=== PATIENT | female | born 1965 | race Caucasian/White ===

== ENCOUNTER 2017-10-19 09:17 | Emergency (ER) | payer BC, SELFPAY | END 2017-10-19 10:30 | disposition home or self-care (01) | LOC: MADERS 09:17 | DX: J06.9 Acute upper respiratory infection, unspecified (principal); E11.9 Type 2 diabetes mellitus without complications; Z79.4 Long term (current) use of insulin | CPT/HCPCS: 99283 ==

== ENCOUNTER 2017-12-28 11:40 | Emergency (ER) | payer BC ==
--- NOTE | 2017-12-28 12:35 | RAD ---
PA AND LATERAL CHEST RADIOGRAPH: Date: 12-28-17 HISTORY: Cough. Comparison: None available. FINDINGS: Cardiac silhouette and pulmonary vasculature are within normal limits. Lungs are clear. Degenerative changes are seen in the spine. IMPRESSION: No acute cardiopulmonary process. POS: [facility]
== END 2017-12-28 12:20 | disposition home or self-care (01) ==
LOC: MADERS 11:40
DX: J20.9 Acute bronchitis, unspecified (principal); I10 Essential (primary) hypertension; E78.5 Hyperlipidemia, unspecified; E11.9 Type 2 diabetes mellitus without complications; Z79.4 Long term (current) use of insulin; Z79.899 Other long term (current) drug therapy
CPT/HCPCS: 71046

== ENCOUNTER 2018-06-20 08:31 | Emergency (ER) | payer BC ==
[2018-06-20] MEDS ORDERED: predniSONE 10 MG TAB ONE (09:09)
[2018-06-20] MEDS ORDERED: predniSONE 20 MG TAB ONE (09:09)
[2018-06-20] MEDS ORDERED: Azithromycin 250 MG TAB ONE (09:09)
[2018-06-20] MEDS ORDERED: Insulin Regular 300 UNITS/3 ML VIAL ONE (10:11)
[2018-06-20] MEDS ORDERED: Lorazepam 2 MG/ML VIAL ONE (12:33)
== END 2018-06-20 11:40 | disposition home or self-care (01) ==
LOC: MADERS 08:31
DX: J20.9 Acute bronchitis, unspecified (principal); E11.65 Type 2 diabetes mellitus with hyperglycemia; I10 Essential (primary) hypertension; E78.5 Hyperlipidemia, unspecified; E11.9 Type 2 diabetes mellitus without complications; Z79.4 Long term (current) use of insulin; Z79.899 Other long term (current) drug therapy
CPT/HCPCS: 36416; J1815; J2060; J7506; J7512; J7620

== ENCOUNTER 2018-06-26 08:06 | Emergency (ER) | payer BC ==
[~2018-06-26 08:06] MED LIST: Sodium Chloride 0.9% 1,000 ML BAG ONE
[2018-06-26] MEDS ORDERED: Ondansetron HCl/PF 4 MG/2 ML Vial ONE (08:33)
[2018-06-26 08:50] LABS: #Monocytes 0.4 thou/uL (0.11-0.59); #Neutrophils 12.6 thou/uL (1.40-6.50); %Basophils 0.2 % (0.0-1.0); %Lymphocytes 7.3 % (21.0-51.0); %Monocytes 3.1 % (0.0-10.0); %Neutrophils 89.4 % (42.0-75.0); Hemoglobin 14.1 g/dL (12.0-16.0); Mean Corpuscular HGB CONC 33.4 g/dL (32.0-36.0); Mean Corpuscular Hemoglobin 29.2 pg (27.0-31.0); Mean Corpuscular Volume 87.5 fL (78.0-98.0); Mean Platelet Volume 7.4 fL (7.4-10.4); Platelet Count 475 thou/uL (130-400); RBC Distribution Width 11.9 % (11.5-14.5); Red Blood Cell (RBC) Count 4.83 mill/uL (4.20-5.40); White Blood Cell (WBC) Count 14.1 thou/uL (4.8-10.8)
[2018-06-26 09:07] LABS: ALT (SGPT) 17 U/L (8-55); AST (SGOT) 14 U/L (5-34); Albumin 2.8 g/dL (3.5-5.0); Alkaline Phosphatase 122 U/L (40-150); Anion Gap 23 mmol/L (10-20); BUN (Urea Nitrogen) 15 mg/dL (9.8-20.1); Bilirubin, Total 0.5 mg/dL (0.2-1.2); Calc. Creatinine Clearance 0 mL/min (70-130); Calcium 9.1 mg/dL (7.8-10.44); Carbon Dioxide 22 mmol/L (22-29); Chloride 97 mmol/L (98-107); Estimated GFR-MDRD 56; Globulin 3.1 g/dL (2.4-3.5); Glucose 469 mg/dL (70-105); Lipase 15 U/L (8-78); Potassium 3.9 mmol/L (3.5-5.1); Protein, Total 5.9 g/dL (6.0-8.3); Sodium 138 mmol/L (136-145)
[2018-06-26] MEDS ORDERED: Insulin Regular 300 UNITS/3 ML VIAL ONE (09:30)
== END 2018-06-26 10:05 | disposition home or self-care (01) ==
LOC: MADERS 08:06
DX: R11.2 Nausea with vomiting, unspecified (principal); R19.7 Diarrhea, unspecified; E11.65 Type 2 diabetes mellitus with hyperglycemia; E78.5 Hyperlipidemia, unspecified; I10 Essential (primary) hypertension; Z79.4 Long term (current) use of insulin; Z79.899 Other long term (current) drug therapy
CPT/HCPCS: 36416; 80053; 83690; 85025; 96361; 96374; 96375; J1815; J2405; J7050